=== PATIENT | female | born 1970 | race African-American/Black ===

== ENCOUNTER 2016-10-23 18:00 | Emergency (ER) | payer OTHER ==
[~2016-10-23] VITALS: Ht 162.6 cm; Wt 86.2 kg
[~2016-10-23 18:00] MED LIST: CIPROFLOXACIN250 MG PO; SEROQUEL200 MG ORAL; WELLBUTRIN SR150 MG ORAL
[2016-10-23] MEDS ORDERED: ZITHROMAX250 MG ORAL (19:04)
[2016-10-23] MEDS ORDERED: TESSALON PERLE100 MG ORAL (19:04)
[2016-10-23] MEDS ORDERED: PROAIR HFA8.5 GM INH (19:04)
[2016-10-23] MEDS ORDERED: PREDNISONE20 MG ORAL (19:04)
[2016-10-23 19:05] VITALS: BP_SYST 129; BP_SYST 139; BP_DIAS 81
--- NOTE | 2016-10-23 20:46 | Emergency Room Report ---
History of Present Illness General Chief Complaint: Upper Respiratory Illness Source: Patient Present Illness [facility] The patient is a 46-year-old female who denies medical history presenting for cough for the past 2 weeks. Patient also admits to subjective fevers and chills. She denies any pain. She denies other symptoms including chest pain, shortness of breath, sore throat, hemoptysis, abdominal pain, headache Allergies: Coded Allergies: No Known Allergies (Unverified , 04/14/13) Patient History Past Medical History: see triage record Pertinent Family History: none Last Menstrual Period: 1 week ago Now: No Nursing Documentation-[facility] Past Medical History: No Stated History Review of Systems All Other Systems: negative except mentioned in HPI Physical Exam Vital Signs Date Time Temp Pulse Resp B/P Pulse Ox O2 Delivery O2 Flow Rate FiO2 10/23/16 18:11 98.6 112 20 139/81 96 Room Air Sp02 EP Interpretation: reviewed, normal General Appearance: no apparent distress, alert, GCS 15, non-toxic Head: normocephalic, atraumatic Eyes: bilateral eye PERRL, bilateral eye normal inspection ENT: hearing grossly normal, normal pharynx, no angioedema, normal voice Neck: full range of motion, supple/symm/no masses Respiratory: normal breath sounds, no respiratory distress, no accessory muscle use, wheezing Cardiovascular #1: regular rate, rhythm, no edema Musculoskeletal: back normal, gait/station normal, normal range of motion, non- tender Neurologic: alert, oriented x3, responsive, motor strength/tone normal, sensory intact, speech normal Psychiatric: judgement/insight normal, memory normal, mood/affect normal, no suicidal/homicidal ideation Skin: normal color, no rash, warm/dry, well hydrated Lymphatic: no adenopathy Medical Decision Making PA Attestation Dr. Casas is my supervising physician. Patient management was discussed with my supervising physician Diagnostic Impression: Primary Impression: Atypical pneumonia ER Course The patient is a 46-year-old female presenting with cough and fever for the past 2 weeks Differential diagnosis include but not limited to pharyngitis, sinusitis, AOM, bronchitis, PNA PE: afebrile. No tachypnea. No apparent distress. No TTP over maxillary or frontal sinuses. Lungs: diffuse wheezing. No accessory muscle use. No resp distress Heart: RRR, no abnormal heart sounds Ears: external auditory canal clear. Non erythematous. Bilat TM intact. Cone of light present bilat. No bulging of TM. No serous fluid seen. no nasal D/C Nor cervical lymphad No tonsillar exudate. Uvula midline.Oropharynx non erythematous The patient will be discharged home with a prescription for Albuterol, antibiotics, steroids, and cough medication Last Vital Signs Date Time Temp Pulse Resp B/P Pulse Ox O2 Delivery O2 Flow Rate FiO2 10/23/16 19:14 107 18 Room Air 10/23/16 19:05 98.2 129/81 99 Status: improved Disposition: HOME, SELF-CARE Condition: Improved Scripts Prednisone* (PREDNISONE*) 20 Mg Tablet 40 MG ORAL DAILY, #8 TAB Prov: DENTON CORRAL P.A. 10/23/16 Benzonatate* (TESSALON PERLE*) 100 Mg Capsule 100 MG ORAL THREE TIMES A DAY, #15 PERLE Prov: DENTON CORRAL P.A. 10/23/16 Albuterol Sulfate* (PROAIR HFA*) 8.5 Gm Hfa.aer.ad 2 PUFFS INH Q6H, #8.5 GM 0 Refills Prov: DENTON CORRAL P.A. 10/23/16 Azithromycin* (ZITHROMAX*) 250 Mg Tablet 250 MG ORAL DAILY, #6 TAB 0 Refills Take two tables once daily for 1 day, then one tablet once daily for 4 days. Prov: DENTON CORRAL P.A. 10/23/16 Referrals: [facility],REFERRING (PCP) Patient Instructions: Cough, Adult Additional Instructions: I discussed my findings with the patient. All questions and concerns have been answered. Treatment and medication compliance have been addressed. I advised the patient that they need to follow up with PMD in 3-5 days. Return to ED if pain remains or worsens, cough worsens or remains, you notice blood in your sputum, you notice wheezing, you experience a fever, or if needed for any reason. Patient verbalized understanding of discharge instructions. DENTON CORRAL October 23, 2016 20:46
== END 2016-10-23 19:05 | disposition home or self-care (01) ==
LOC: EMR 18:46
DX: J18.9 Pneumonia, unspecified organism (principal)
CPT/HCPCS: 99284

== ENCOUNTER 2017-06-28 03:04 | Emergency (ER) | payer MEDICARE, MEDICAID ==
[~2017-06-28] VITALS: Ht 160 cm; Wt 83.9 kg
[~2017-06-28 03:04] MED LIST changes: +BUPROPION XL300 MG ORAL; +PREDNISONE20 MG ORAL; +PROAIR HFA8.5 GM INH; +QUETIAPINE FUMA25 MG ORAL; +TESSALON PERLE100 MG ORAL; +ZITHROMAX250 MG ORAL
[2017-06-28 03:10] VITALS: BP 128/73
[2017-06-28] MEDS ORDERED: Morphine Sulfate 4mg/ml Inj IVP ONE ×2 (03:15→03:45)
[2017-06-28 03:26] LABS: APPEARANCE,URINE SLIGHTLY CLOUDY; BASOPHILS % (AUTO) 1.3 % (0.0-2.0); BILIRUBIN, URINE NEGATIVE (NEGATIVE); EOSINOPHILS % (AUTO) 2.6 % (0.0-3.0); GLUCOSE, URINE (UA) NEGATIVE (NEGATIVE); HEMATOCRIT 37.6 % (37.0-47.0); KETONES,URINE NEGATIVE (NEGATIVE); LEUKOCYTE ESTERASE ,URINE 2+ (NEGATIVE); MEAN CORPUSCULAR VOLUME 83 FL (80-99); MONOCYTES % (AUTO) 5.5 % (1.0-10.0); NEUTROPHILS % (AUTO) 54.6 % (45.0-75.0); NITRITE,URINE NEGATIVE (NEGATIVE); PH,URINE 6 (4.5-8.0); PLATELET COUNT 256 K/UL (150-450); PROTEIN,URINE 1+ (NEGATIVE); RED BLOOD COUNT 4.53 M/UL (4.20-5.40); RED CELL DISTRIBUTION WIDTH 12.5 % (11.6-14.8); UROBILINOGEN,URINE NORMAL MG/DL (0.0-1.0); WHITE BLOOD COUNT 7.7 K/UL (4.8-10.8)
[2017-06-28 03:39] LABS: COLOR,URINE YELLOW
[2017-06-28 03:42] LABS: ANION GAP 7 mmol/L (5-15); BLOOD UREA NITROGEN 13 mg/dL (7-18); CALCIUM 7.8 MG/DL (8.5-10.1); CARBON DIOXIDE 28 MMOL/L (21-32); CHLORIDE 104 MMOL/L (98-107); CREATININE 0.9 MG/DL (0.55-1.30); POTASSIUM 3.6 MMOL/L (3.5-5.1); SODIUM 139 MMOL/L (136-145)
[2017-06-28] MEDS ORDERED: Ketorolac 30mg Inj IV ONE (03:45)
[2017-06-28 03:47] LABS: ALANINE AMINOTRANSFERASE 20 U/L (12-78); ALBUMIN 3.9 G/DL (3.4-5.0); ALKALINE PHOSPHATASE 111 U/L (46-116); ASPARTATE AMINO TRANSFERASE 14 U/L (15-37); BILIRUBIN,TOTAL 0.2 MG/DL (0.2-1.0)
[2017-06-28 05:05] VITALS: BP 125/78
[2017-06-28] MEDS ORDERED: KEFLEX500 MG ORAL (05:40)
[2017-06-28] MEDS ORDERED: IBUPROFEN600 MG ORAL (05:40)
[2017-06-28] MEDS ORDERED: NORCO 5-325 TA1 EACH ORAL (05:40)
[2017-06-28 06:00] VITALS: BP 120/74
--- NOTE | 2017-06-28 06:00 | Emergency Room Report ---
History of Present Illness General Chief Complaint: Abdominal Pain Source: Patient Present Illness HPI 46-year-old female presents ED complaining of abdominal pain. Started approximately one hour prior to arrival. Sudden onset. Lower, 10 out of 10, sharp, nonradiating. Denies fevers chills. Denies chest pain shortness of breath. Denies nausea or vomiting. Denies vaginal bleeding or discharge. No other aggravating relieving factors. Denies any other associated symptoms Allergies: Coded Allergies: No Known Allergies (Unverified , 04/14/13) Patient History Past Medical History: psych hx Past Surgical History: none Pertinent Family History: none Social History: Denies: smoking, alcohol use, drug use Last Menstrual Period: may 2017 Now: No Immunizations: UTD Reviewed Nursing Documentation: PMH: Agreed, PSxH: Agreed Nursing Documentation-PMH Past Medical History: No History, Except For History Of Psychiatric Problem: Yes - depression Review of Systems All Other Systems: negative except mentioned in HPI Physical Exam Vital Signs Date Time Temp Pulse Resp B/P (MAP) Pulse Ox O2 Delivery O2 Flow Rate FiO2 06/28/17 02:56 97.5 74 16 128/74 98 Room Air Sp02 EP Interpretation: reviewed, normal General Appearance: alert, GCS 15, non-toxic, moderate distress Head: normocephalic Eyes: bilateral eye normal inspection, bilateral eye PERRL ENT: normal ENT inspection Neck: normal inspection Respiratory: normal inspection Cardiovascular #1: normal inspection Gastrointestinal: normal bowel sounds, soft, non-distended, no guarding, no rebound, tenderness - lower abdomen Rectal: deferred Genitourinary: no CVA tenderness Musculoskeletal: normal inspection Neurologic: alert, oriented x3, responsive, motor strength/tone normal, sensory intact, speech normal Psychiatric: normal inspection, judgement/insight normal Skin: normal inspection Lymphatic: normal inspection Medical Decision Making Diagnostic Impression: Primary Impression: UTI (urinary tract infection) Qualified Codes: N39.0 - Urinary tract infection, site not specified Additional Impression: Adenomyosis ER Course Hospital Course 46-year-old F presents to ED with abdominal pain Differential diagnosis includes-appendicitis, cholecystitis, small bowel obstruction, gastritis, Clinical course Patient placed on stretcher. After initial history and physical I ordered labs , IV fluids, pain medications and CT scan Labs - no leukocytosis, electrolytes ok, LFTs normal, UA + bacteria CT scan shows adenomyosis in uterus Upon reassessment, patient states pain has improved. Discussed findings with patient and family. Recommend management as outpatient with [employer] for further evaluation I feel this is a highly complex case requiring extensive working including EKG/ Rhythm strip, Xray/CT/US, Blood/urine lab work, repeat exams while in ED, and administration of strong opiates/narcotics for pain control, admission to hospital or close patient follow up. Diagnosis - adenomyosis, UTI Stable and discharged to home with Rx Motrin, Delaplane, Keflex. Followup with PMD. Return to ED if symptoms recur or worsen Labs Test 06/28/17 03:11 White Blood Count 7.7 K/UL (4.8-10.8) Red Blood Count 4.53 M/UL (4.20-5.40) Hemoglobin 12.0 G/DL (12.0-16.0) Hematocrit 37.6 % (37.0-47.0) Mean Corpuscular Volume 83 FL (80-99) Mean Corpuscular Hemoglobin 26.6 PG (27.0-31.0) Mean Corpuscular Hemoglobin Concent 32.0 G/DL (32.0-36.0) Red Cell Distribution Width 12.5 % (11.6-14.8) Platelet Count 256 K/UL (150-450) Mean Platelet Volume 8.7 FL (6.5-10.1) Neutrophils (%) (Auto) 54.6 % (45.0-75.0) Lymphocytes (%) (Auto) 36.0 % (20.0-45.0) Monocytes (%) (Auto) 5.5 % (1.0-10.0) Eosinophils (%) (Auto) 2.6 % (0.0-3.0) Basophils (%) (Auto) 1.3 % (0.0-2.0) Urine Color Yellow Urine Appearance Slightly cloudy Urine pH 6 (4.5-8.0) Urine Specific [place] 1.025 (1.005-1.035) Urine Protein 1+ (NEGATIVE) Urine Glucose (UA) Negative (NEGATIVE) Urine Ketones Negative (NEGATIVE) Urine Occult Blood 4+ (NEGATIVE) Urine Nitrite Negative (NEGATIVE) Urine Bilirubin Negative (NEGATIVE) Urine Urobilinogen Normal MG/DL (0.0-1.0) Urine Leukocyte Esterase 2+ (NEGATIVE) Urine RBC 15-20 /HPF (0 - 2) Urine WBC 20-30 /HPF (0 - 2) Urine Squamous Epithelial Cells Few /LPF (NONE/OCC) Urine Bacteria Few /HPF (NONE) Urine Mucus Few /LPF (NONE/OCC) Sodium Level 139 MMOL/L (136-145) Potassium Level 3.6 MMOL/L (3.5-5.1) Chloride Level 104 MMOL/L (98-107) Carbon Dioxide Level 28 MMOL/L (21-32) Anion Gap 7 mmol/L (5-15) Blood Urea Nitrogen 13 mg/dL (7-18) Creatinine 0.9 MG/DL (0.55-1.30) Estimat Glomerular Filtration Rate > 60 mL/min (>60) Glucose Level 146 MG/DL (74-106) Calcium Level 7.8 MG/DL (8.5-10.1) Total Bilirubin 0.2 MG/DL (0.2-1.0) Aspartate Amino Transf (AST/SGOT) 14 U/L (15-37) Alanine Aminotransferase (ALT/SGPT) 20 U/L (12-78) Alkaline Phosphatase 111 U/L (46-116) Total Protein 7.8 G/DL (6.4-8.2) Albumin 3.9 G/DL (3.4-5.0) Globulin 3.9 g/dL Albumin/Globulin Ratio 1.0 (1.0-2.7) Lipase 88 U/L (73-393) CT/MRI/US Diagnostic Results CT/MRI/US Diagnostic Results : Imaging Test Ordered: CT A/P Impression adenomyosis Last Vital Signs Date Time Temp Pulse Resp B/P (MAP) Pulse Ox O2 Delivery O2 Flow Rate FiO2 06/28/17 03:10 97.8 94 17 128/73 99 Room Air Status: improved Disposition: HOME, SELF-CARE Condition: Stable Scripts Cephalexin* (KEFLEX*) 500 Mg Capsule 500 MG ORAL Q6H, #28 CAP 0 Refills Prov: JORDAN MORGAN M.D. 06/28/17 Hydrocodone Bit/Acetaminophen 5-325* (NORCO 5-325*) 1 Each Tablet 1 TAB ORAL Q6H Y for For Pain, #10 TAB 0 Refills Prov: JORDAN MORGAN M.D. 06/28/17 Ibuprofen* (MOTRIN*) 600 Mg Tablet 600 MG ORAL Q8H Y for For Pain, #30 TAB 0 Refills Prov: JORDAN MORGAN M.D. 06/28/17 Patient Instructions: Dysmenorrhea, [id number] JORDAN MORGAN M.D. Jun 28, 2017 06:00
[2017-06-28 06:05] VITALS: BP 120/74
--- NOTE | 2017-07-01 13:43 | Diagnostic Imaging Report ---
Indication: Abdominal pain Technique: CT of the abdomen and pelvis utilizing automated exposure control with intravenous contrast. Venous scanning performed. CT dose: Total DLP 1376 mGycm; CTDI vol 25.9 mGy Comparison: None Findings: There are mild linear opacities in the lung bases. There is fatty infiltration of the liver. No CT dense gallstones are identified. There is an 8 mm hypodensity within the right lobe of the liver too small to characterize series 2 image 36. The adrenal glands, kidneys, spleen and pancreas are grossly unremarkable. The appendix is normal. The degenerative changes of the spine are seen. A left adnexal cystic lesion measures approximately 4.3 x 2.7 cm. There is low-density within the endometrium or endometrial canal measuring approximately 6.3 cm AP. Bladder is grossly unremarkable. Impression: Central low-density within the endometrium or endometrial canal measuring approximately 6.3 cm AP. Findings could represent hydrometra or markedly thickened endometrium. Correlation with ultrasound and gynecologic evaluation recommended. Approximately left adnexal 4.3 x 2.7 cm cystic lesion and correlation with pelvic ultrasound recommended. Hepatic steatosis. Approximately 8 mm hypodensity within the right lower liver too small to characterize. Follow-up/further evaluation recommended as indicated. Lung base atelectasis. The CT scanner at [facility] is accredited by the [employer] and the scans are performed using protocols designed to limit radiation exposure to as low as reasonably achievable to attain images of sufficient resolution adequate for diagnostic evaluation.
== END 2017-06-28 06:05 | disposition home or self-care (01) ==
LOC: EDBD 03:04 → EMR 03:38
DX: N39.0 Urinary tract infection, site not specified (principal); N80.0 Endometriosis of uterus; F32.9 Major depressive disorder, single episode, unspecified
CPT/HCPCS: 36415; 74177; 80053; 81003; 83690; 85025; 87086; 96361; 96374; 96375; 99284; J1885; J2270; Q9967

== ENCOUNTER 2017-09-26 20:28 | Emergency (ER) | payer MEDICARE, MEDICAID ==
[~2017-09-26] VITALS: Ht 160 cm; Wt 81.6 kg
[~2017-09-26 20:28] MED LIST changes: +IBUPROFEN600 MG ORAL; +KEFLEX500 MG ORAL; +NORCO 5-325 TA1 EACH ORAL
[2017-09-26 20:45] VITALS: BP 135/72
[2017-09-26] MEDS ORDERED: Norco 5mg/325mg tab ORAL ONE ×2 (21:00→23:15)
[2017-09-26] MEDS ORDERED: Lidocaine 1% MPF 10mg/ml 5ml INJ ONE (21:30)
[2017-09-26] MEDS ORDERED: NORCO 5-325 TA1 EACH ORAL (22:25)
[2017-09-26] MEDS ORDERED: AUGMENTIN 875-1 EAC1 ORAL (22:25)
[2017-09-26] MEDS ORDERED: Bacitracin Oint UD TOPIC ONE (22:30)
[2017-09-26 23:00] VITALS: BP 132/71
[2017-09-26 23:10] VITALS: BP 132/71
--- NOTE | 2017-09-27 09:39 | Diagnostic Imaging Report ---
Indication: pain. Left hand pain Findings: 3 views of the left hand were obtained. Fracture of the tuft of the second digit noted. Negative exam otherwise. IMPRESSION: Acute fracture of the second distal phalangeal tuft
--- NOTE | 2017-09-27 14:29 | Emergency Room Report ---
History of Present Illness General Chief Complaint: Upper Extremity Injury Source: Patient Present Illness HPI Patient's 47-year-old female who presented after increased pain to her left index finger. The patient reportedly slammed her finger into a car door accidentally. She denies any other locations of injury. Patient was noted to have pain and bleeding to the area. She is right-hand dominant. Patient works as a furniture reseller. The patient presented having a severe pain. Allergies: Coded Allergies: No Known Allergies (Unverified , 04/14/13) Patient History Last Menstrual Period: last month Now: No Reviewed Nursing Documentation: PMH: Agreed; PSxH: Agreed Review of Systems All Other Systems: negative except mentioned in HPI Physical Exam Vital Signs Date Time Temp Pulse Resp B/P (MAP) Pulse Ox O2 Delivery O2 Flow Rate FiO2 09/26/17 20:33 98.6 104 18 138/70 99 Room Air 98.6 General Appearance: well appearing, no apparent distress, alert, GCS 15 Head: normocephalic, atraumatic ENT: hearing grossly normal, normal voice Neck: full range of motion, supple Respiratory: no respiratory distress, speaking full sentences Musculoskeletal: other - partial nail avulsion to right index Neurologic: normal inspection, alert, oriented x3, normal gait Psychiatric: mood/affect normal Skin: laceration - laceration to nailbed Medical Decision Making Diagnostic Impression: Primary Impression: Finger fracture, left ER Course Patient presented for finger pain. Differential diagnosis included was not limited to fracture, dislocation, foreign body among others.The patient was noted to have the nail avulsion. The patient's laceration was irrigated. The stay suture was placed in nail was replaced in nail fold. The patient is advised to follow up with hand surgery in 2 days. The finger is dressed in sterile gauze and antibiotic ointment was applied. Patient is advised to return if any worsening condition or if any changes in status that are concerning. This report is dictated with [employer] dental hygiene professor software which may occasionally lead to discrepancies related to use of this software. Last Vital Signs Date Time Temp Pulse Resp B/P (MAP) Pulse Ox O2 Delivery O2 Flow Rate FiO2 09/26/17 23:10 98.6 87 16 132/71 99 Room Air 209.5 Status: improved Disposition: HOME, SELF-CARE Condition: Stable Scripts Amoxicillin/Potassium Clav 875-125* (AUGMENTIN 875-125 TABLET*) 1 Each Tablet 1 TAB ORAL TWICE A DAY, #14 TAB Prov: Srinivas Regan 09/26/17 Hydrocodone Bit/Acetaminophen 5-325* (NORCO 5-325*) 1 Each Tablet 1 TAB ORAL Q6H PRN for For Pain, #10 TAB 0 Refills Prov: Srinivas Regan 09/26/17 Referrals: EFFIE EDWARDS M.D. NOT [facility]OSEN [facility]/,REFERRING (PCP) Patient Instructions: Finger Fracture, Nail Bed Injury, [id number] Srinivas Regan Sep 27, 2017 14:29
== END 2017-09-26 23:10 | disposition home or self-care (01) ==
LOC: EMR 21:41
DX: S62.631A Displaced fracture of distal phalanx of left index finger, initial encounter for closed fracture (principal); W23.0XXA Caught, crushed, jammed, or pinched between moving objects, initial encounter; Y92.810 Car as the place of occurrence of the external cause
CPT/HCPCS: 99284

== ENCOUNTER 2018-09-21 14:24 | Emergency (ER) | payer MEDICARE, MEDICAID ==
[~2018-09-21] VITALS: Ht 162.6 cm; Wt 72.6 kg
[~2018-09-21 14:24] MED LIST changes: +AUGMENTIN 875-1 EAC1 ORAL
--- NOTE | 2018-09-21 14:40 | NUR ---
ED Nurse Note: Patient walked into ED c/o flu like symptoms for 1 week, ptient reports of having a cough and a sore throat that she rates her pain a 7/10 pain. patient is alert adn oriented x4, ambulatory with a steady gait, VSS
[2018-09-21 14:43] VITALS: BP 147/82
--- NOTE | 2018-09-21 15:12 | NUR ---
ED Nurse Note: Received verbal orders from PA. Viktor for toradol 30mg im and lidocaine visc
[2018-09-21] MEDS ORDERED: Lidocaine 2% Visc 15ml soln ORAL ONE (15:15)
[2018-09-21] MEDS ORDERED: Ketorolac 30mg Inj IM ONE (15:15)
--- NOTE | 2018-09-21 15:20 | Emergency Room Report ---
History of Present Illness General Chief Complaint: Flu Like Symptoms Source: Patient Present Illness HPI 48-year-old female patient presents the ER complaining of cough and sore throat times 1 week. Reports cough with sputum. Denies hemoptysis. Denies recent travel outside the country. Denies smoking cigarettes or marijuana. Denies history of heart disease or diabetes. Reports subjective fever at home at symptom onset however has since resolved , afebrile in the ER. Reports cough causes chest pain, states is reproducible. Denies abdominal pain. Denies vomiting or diarrhea. Reports has been taking [id number] remedies for relief of symptoms. denies history of asthma. Contrary to triage report, patient did not report headache. Allergies: Coded Allergies: No Known Allergies (Unverified , 04/14/13) Patient History Past Medical History: see triage record Reviewed Nursing Documentation: PMH: Agreed; PSxH: Agreed Nursing Documentation-PMH Past Medical History: No Stated History Review of Systems All Other Systems: negative except mentioned in HPI Physical Exam Vital Signs Date Time Temp Pulse Resp B/P (MAP) Pulse Ox O2 Delivery O2 Flow Rate FiO2 09/21/18 14:38 98.4 100 19 147/82 95 Sp02 EP Interpretation: reviewed, normal General Appearance: well appearing, no apparent distress, alert, GCS 15, non- toxic Head: normocephalic, atraumatic Eyes: bilateral eye normal inspection, bilateral eye PERRL ENT: hearing grossly normal, normal pharynx, no angioedema, normal voice, TMs + canals normal, uvula midline, moist mucus membranes, pharyngeal erythema, other - No exudates, no swelling Neck: full range of motion, no meningismus, no bony tend Respiratory: lungs clear, normal breath sounds, no rhonchi, no respiratory distress, no accessory muscle use, no wheezing, speaking full sentences Cardiovascular #1: regular rate, rhythm, no edema Musculoskeletal: back normal, digits/nails normal, gait/station normal, normal range of motion, non-tender, no calf tenderness, Javid's Sign negative Neurologic: alert, oriented x3, responsive, motor strength/tone normal, sensory intact Psychiatric: mood/affect normal Skin: no rash Medical Decision Making PA Attestation Dr. Mera is my supervising Physician whom patient management has been discussed with. Diagnostic Impression: Primary Impression: Upper respiratory infection ER Course Pt presents to ED c/o cough and sore throat. DDX considered but are not limited to influenza, viral URI, pneumonia, strep throat, rhinitis, sinusitis, otitis media, otitis externa. Low suspicion for PE per well's criteria. Chest pain likely musculoskeletal in nature secondary to cough, does not require cardiac workup at this time. Patient has no cardiac risk factors, no history of heart disease, no history of diabetes, denies smoking. Patient instructed to take NSAIDs as needed for pain symptoms. VITAL SIGNS are WNL, patient is afebrile. ER COURSE: Lungs clear to auscultation, no wheezes, rhonci or rales. Chest x-ray negative for acute disease per the preliminary reading. Patient afebrile, low suspicion for pneumonia. no tonsillar exudates, no pharyngeal erythema, history of cough, no fever, no stridor, uvula midline, low suspicion for peritonsillar abscess or strep pharyngitis. Likely viral etiology of symptoms. Low suspicion for bacterial infection, does not require antibiotics at this time. Symptomatic treatment. drink plenty of fluids. Salt water gargles for sore throat. Followup with PCP for further treatment and/or referral as needed. Patient requested refill of inhaler medication. Does not require breathing treatment in the ER, declines wheezing or shortness of breath. Follow-up with PCP for further evaluation and treatment. Refill of inhaler provided. ER precautions given. DISCHARGE: At this time pt is stable for d/c to home. Patient is resting comfortably, in no acute distress, nontoxic appearing. Patient to take medications as instructed Will provide with patient care instructions and any necessary prescriptions. Care plan and follow-up instructions provided. Patient instructed to follow-up with primary care provider in 3 - 5 days. Patient questions asked and answered. Patient reports understanding and agreement to treatment plan. ER precautions given. Patient instructed to return to ER immediately for any new or worsening of symptoms including but not limited to increasing SOB, persistent fever, intractable vomiting. - Please note that this Emergency Department Report was dictated using [employer] lead technology software, occasionally this can lead to erroneous entry secondary to interpretation by the dictation equipment. Last Vital Signs Date Time Temp Pulse Resp B/P (MAP) Pulse Ox O2 Delivery O2 Flow Rate FiO2 09/21/18 14:43 100 19 09/21/18 14:43 98.4 147/82 95 Status: improved Disposition: HOME, SELF-CARE Condition: Stable Scripts Benzonatate* (TESSALON PERLE*) 100 Mg Capsule 100 MG ORAL THREE TIMES A DAY, #30 PERLE Prov: Kennedy Flowers 09/21/18 Ibuprofen* (MOTRIN*) 600 Mg Tablet 600 MG ORAL Q8H PRN for For Pain, #30 TAB 0 Refills Prov: Kennedy Flowers 09/21/18 Albuterol Sulfate* (ALBUTEROL SULFATE MDI*) 8.5 Gm Hfa.aer.ad 2 PUFF INH Q6H, #1 INH 0 Refills Prov: Kennedy Flowers 09/21/18 Patient Instructions: Sore Throat, [id number], Upper Respiratory Infection, Adult, [id number] Additional Instructions: Followup with primary care provider in 3 -5 days. Salt water gargles Take Tylenol for pain and fever symptoms Drink plenty of water. Take medications as directed. Patient questions asked and answered. ER precautions given, patient instructed to return to ER immediately for any new or worsening of symptoms including but not limited to intractable vomiting, difficulty breathing, inability to eat. Kennedy Flowers Sep 21, 2018 15:20
--- NOTE | 2018-09-21 15:54 | Diagnostic Imaging Report ---
Indication: Cough Technique: One view of the chest Comparison: none Findings: Lungs and pleural spaces are clear. Heart size is normal Impression: No acute process
[2018-09-21] MEDS ORDERED: ALBUTEROL SULF8.5 GM INH (16:04)
[2018-09-21] MEDS ORDERED: TESSALON PERLE100 MG ORAL (16:04)
[2018-09-21] MEDS ORDERED: IBUPROFEN600 MG ORAL (16:04)
[2018-09-21 16:17] VITALS: BP 133/86
--- NOTE | 2018-09-21 16:18 | NUR ---
ER DISCHARGE NOTE: Patient is cleared to be discharged per ERMD, pt is aox4, on room air, with stable vital signs. pt was given dc and prescription instructions, pt was able to verbalize understanding, pt id band removed without complications. pt is able to ambulate with steady gait. pt took all belongings.
== END 2018-09-21 16:18 | disposition home or self-care (01) ==
LOC: EMR 15:10
DX: J06.9 Acute upper respiratory infection, unspecified (principal)
CPT/HCPCS: 71045; 96372; 99283; J1885